=== PATIENT | male | born 1965 | race African-American/Black ===

== ENCOUNTER 2017-03-21 12:16 | Emergency (ER) | payer OTHER ==
[~2017-03-21 12:16] MED LIST: MOTRIN PO
[2017-03-21 13:13] VITALS: BP 120/89
== END 2017-03-21 13:13 | disposition home or self-care (01) ==
LOC: ED 12:16
DX: H92.02 Otalgia, left ear (principal)

== ENCOUNTER 2018-03-27 15:51 | Emergency (ER) | payer OTHER ==
[~2018-03-27] VITALS: Ht 182.9 cm; Wt 90.3 kg
[2018-03-27 16:01] VITALS: BP 128/80; Ht 182.9 cm; Wt 90.3 kg
== END 2018-03-27 16:39 | disposition home or self-care (01) ==
LOC: ED 15:51
DX: G89.29 Other chronic pain (principal); R68.84 Jaw pain